=== PATIENT | male | born 1955 | race Caucasian/White ===

== ENCOUNTER → 2022-09-02 | Outpatient (CLI) | payer BC, MEDICARE ==
[2022-09-02 15:01] LABS: Adenovirus F 40/41 Not Detected (NOT DETECT); Astrovirus Not Detected (NOT DETECT); Campylobacter Sp Not Detected (NOT DETECT); Cryptosporidium Not Detected (NOT DETECT); Cyclospora Cayetanensis Not Detected (NOT DETECT); E. Coli O157 Not Detected (NOT DETECT); Entamoeba Histolytica Not Detected (NOT DETECT); Enteroaggregative E. coli-EAEC Not Detected (NOT DETECT); Enteropathogenic E. coli-EPEC Not Detected (NOT DETECT); Enterotoxigenic E. coli-ETEC Not Detected (NOT DETECT); Giardia Lamblia Not Detected (NOT DETECT); Norovirus GI/GII Not Detected (NOT DETECT); Plesiomonas Shigelloides Not Detected (NOT DETECT); Rotavirus A Not Detected (NOT DETECT); Salmonella Sp Not Detected (NOT DETECT); Sapovirus Not Detected (NOT DETECT); Shiga Toxin-prod E. coli-STEC Not Detected (NOT DETECT); Shigella/Enteroin E. coli-EIEC Not Detected (NOT DETECT); Vibrio Cholerae Not Detected (NOT DETECT); Vibrio Sp Not Detected (NOT DETECT); Yersinia Enterocolitica Not Detected (NOT DETECT)
== END ==
LOC: LAB SHORT 10:00
PROVIDERS: Physician Assistant
DX: R19.7 Diarrhea, unspecified (principal)
CPT/HCPCS: 87324; 87507

== ENCOUNTER 2024-08-22 09:16 | Day surgery (SDC) | payer MEDICARE, BC ==
[2024-08-22] VITALS (9 sets, daily range): BP systolic 119–162; BP diastolic 74–95
[~2024-08-22] VITALS: Ht 200.7 cm; Wt 136.4 kg
[~2024-08-22 09:16] MED LIST: Aspir 8181 MG PO; EFUDEX40 GM TD; EZET10 PO; LISI20 PO; LOSARTAN-HCTZ1 EACH PO; Lipitor20 MG PO; METO25ER PO; NITR.4SL SL; TAMS.4ER PO
[2024-08-22] MEDS ORDERED: Heparin Sodium 1000 Units/ML 10ML MDV ONE ×2 (10:36→10:54)
[2024-08-22] MEDS ORDERED: Verapamil HCL 2.5 MG/ML 2ML Injection ONE (10:36)
[2024-08-22] MEDS ORDERED: NS 1,000 ML IV ONE ×2 (10:36→10:54)
[2024-08-22] MEDS ORDERED: NS 250 ML IV ONE (10:37)
[2024-08-22] MEDS ORDERED: Nitroglycerin 2 MG/20 ML BTL ONE (10:37)
[2024-08-22] MEDS ORDERED: FentaNYL Citrate 50 MCG/ML 2 ML Injection ONE (10:53)
[2024-08-22] MEDS ORDERED: Midazolam HCl 1MG / ML 2ML Vial ONE (10:53)
[2024-08-22] MEDS ORDERED: Aspirin 325 MG Tab ONE (11:30)
[2024-08-22] MEDS ORDERED: Clopidogrel Bisulfate 300 MG Cap ONE (11:30)
--- NOTE | 2024-08-22 12:23 | NUR ---
pt back to recovery. pt a&o. radial site soft and non-tender per pt. no bleeding noted.
--- NOTE | 2024-08-22 12:29 | NUR ---
dr brown at bedside discussing procedure and future plan of care.
[2024-08-22] MEDS ORDERED: NS 500 ML IV ONE (12:47)
--- NOTE | 2024-08-22 13:08 | NUR ---
ekg sent to dr brown per request. plavix script and atorvastatin increase called to pharmacy.
[2024-08-22] MEDS ORDERED: CLOP75 PO (13:11)
--- NOTE | 2024-08-22 14:18 | NUR ---
TR BAND DELFATION INTITAED, AFTER 4CC REMOVED PT STARTED TO OOZE, 2 CC REINSTILLED TO STOP OOZING. WILL CONTINUE TO DEFALTE PER PROTOCOL.
--- NOTE | 2024-08-22 14:33 | NUR ---
PT TR BAND DEFLATED AT THIS TIME. NO SWELLING AROUND SITE. PT VSS REMAIN STABLE. SNACKS PROVIDED.
--- NOTE | 2024-08-22 15:15 | NUR ---
PT able to get dressed w/o difficulty. TR band removed, bandage in place. No swelling no oozing. Discharge instructions reviewed in detail. prescriptions called to pt pharmacy. pt iv removed, cathter intact. pt. vss upon discharge. pt to drive him home.
== END 2024-08-22 16:32 | disposition home or self-care (01) ==
LOC: MHTC 09:16 → ORSCMMR 09:18 → MHTC 09:45
DX: I25.118 Atherosclerotic heart disease of native coronary artery with other forms of angina pectoris (principal); I42.2 Other hypertrophic cardiomyopathy; I77.810 Thoracic aortic ectasia; I10 Essential (primary) hypertension; E78.5 Hyperlipidemia, unspecified; N40.0 Benign prostatic hyperplasia without lower urinary tract symptoms; Z79.82 Long term (current) use of aspirin; Z79.899 Other long term (current) drug therapy
CPT/HCPCS: 76937; 85347; 93458; 99152; 99153; A9270; C1725; C1769; C1874; C1887; C1894; C9600; J1644; J2250; J3010; J7030; J7040; J7050; Q9967